=== PATIENT | male | born 1970 | race Caucasian/White ===

== ENCOUNTER → 2017-07-24 | Outpatient (CLI) | payer OTHER ==
--- NOTE | 2017-07-25 13:05 | DIAGNOSTIC IMAGING REPORT ---
THREE-PHASE BONE SCAN OF THE FEET CLINICAL HISTORY: Left foot fracture. Lisfranc sprain in January 2017. COMPARISON STUDY: Left foot radiograph April 10, [address] of the left foot July 14, 2017. TECHNIQUE: 27 mCi of technetium 99m MDP was injected IV at 2:55 PM on July 24, 2017. Immediately following injection, blood flow images were obtained. Blood pool images were obtained followed by 3 delayed phase imaging of the feet in multiple projections. FINDINGS: Note is made of an abnormal 3 phase bone scan involving the left midfoot. There is increased radiotracer uptake within the left midfoot on the blood flow, blood pool and delayed images. The uptake is most pronounced over the base of the left first metatarsal. However, there is also moderate uptake within the remainder of the tarsometatarsal joints. There is uptake within the knees which is likely degenerative. Moderate uptake within the left ankle is noted. IMPRESSION: Abnormal 3 phase bone scan with increased radiotracer uptake on the blood flow, blood pool and delayed phase images within the left midfoot, most pronounced over the base of the left first metatarsal with involvement of the remainder of the tarsometatarsal joints. In part, this uptake is likely related to the incompletely healed fracture of the base of the left first metatarsal. This suggests delayed fracture healing. In addition, the diffuse tarsometatarsal joint uptake raises the possibility of a Lisfranc injury. Electronically signed by: Abner Diaz M.D. 07/25/2017 1:03 PM Dictated Date/Time: 07/24/2017 6:54 PM
== END | disposition home or self-care (01) ==
LOC: C.NUCL 14:20 → EDBD 15:00
PROVIDERS: ATTEND Orthopaedic Surgery Sports Medicine
DX: S62.233A Other displaced fracture of base of first metacarpal bone, unspecified hand, initial encounter for closed fracture (principal); S93.629A Sprain of tarsometatarsal ligament of unspecified foot, initial encounter; X58.XXXA Exposure to other specified factors, initial encounter